=== PATIENT | male | born 1970 | race African-American/Black ===

== ENCOUNTER 2024-05-01 10:27 | Inpatient (IN) | payer OTHER ==
[~2024-05-01 10:27] MED LIST: Iopamidol-370 76% 500 ML MDV (1 ML CHARGE) ONE
[2024-05-01 11:37] LABS: #Basophils 0.15 10x3/uL (0.0-0.2); %Basophils 0.6 % (0.0-1.0); %Eosinophils 0.4 % (0.0-10.0); %Lymphocytes 6.6 % (21.0-51.0); %Monocytes 10.9 % (0.0-10.0); %Neutrophils 78.6 % (42.0-75.0); Hematocrit 39.9 % (42.0-52.0); Hemoglobin 13.5 g/dL (14.0-18.0); Mean Corpuscular HGB CONC 33.8 g/dL (32.0-36.0); Mean Corpuscular Hemoglobin 30.5 pg (27.0-31.0); Mean Corpuscular Volume 90.1 fL (78.0-98.0); Mean Platelet Volume 9.1 fL (7.4-10.4); Platelet Count 429 10x3/uL (130-400); RBC Distribution Width 12.6 % (11.5-14.5); Red Blood Cell (RBC) Count 4.43 mill/uL (4.70-6.10)
[2024-05-01] MEDS ORDERED: Ketorolac Tromethamine 30 MG (1 mL) VIAL ONE (11:38)
[2024-05-01 11:54] LABS: ALT (SGPT) 24 U/L (8-55); AST (SGOT) 27 U/L (5-34); Albumin 2.2 g/dL (3.5-5.0); Alkaline Phosphatase 262 U/L (40-110); Anion Gap 15 mmol/L (10-20); BUN (Urea Nitrogen) 16 mg/dL (8.4-25.7); Bilirubin, Total 1.3 mg/dL (0.2-1.2); Calc. Creatinine Clearance 0 mL/min (70-130); Calcium 8.9 mg/dL (7.8-10.44); Carbon Dioxide 25 mmol/L (22-29); Chloride 92 mmol/L (98-107); Estimated GFR 95; Globulin 4.8 g/dL (2.4-3.5); Glucose 316 mg/dL (70-105); Potassium 4.7 mmol/L (3.5-5.1); Sodium 127 mmol/L (136-145)
[2024-05-01] MEDS ORDERED: Vancomycin (BATCH) 2 GM/500 ML BAG ONE (12:37)
[2024-05-01] MEDS ORDERED: cefTRIAXone (ROCEPHIN) 1 GM VIAL ONE (12:42)
[2024-05-01] MEDS ORDERED: Ondansetron PF 4 MG/2 ML Vial IVP PRN (13:31)
[2024-05-01] MEDS ORDERED: traMADol HCl 50 MG TAB PO PRN (13:33)
[2024-05-01] MEDS ORDERED: PROPOFOL 20 ML ONE (16:09)
[2024-05-01] MEDS ORDERED: fentaNYL 50 mcg/mL 1 mL Vial ONE ×2 (16:09→16:44)
[2024-05-01] MEDS ORDERED: Rocuronium Bromide 10 MG/ML (10ML VIAL) ONE (16:10)
[2024-05-01] MEDS ORDERED: Ondansetron PF 4 MG/2 ML Vial ONE (16:45)
[2024-05-01] MEDS ORDERED: SUGAMMADEX SODIUM 200 MG/2 ML VIAL ONE (17:02)
[2024-05-01] MEDS ORDERED: Meperidine HCl/PF 25 MG (1 mL) VIAL ONE (17:23)
[2024-05-01] MEDS ORDERED: Piperacillin/Tazobactam 3.375 GM VIAL ONE (17:56)
[2024-05-01] MEDS ORDERED: Sodium Chloride 0.9% 100 ML ONE (17:57)
[2024-05-01 19:56] VITALS: BMI 33.6
[2024-05-01] MEDS: Piperacillin/Tazobactam 3.375 GM in Sodium Chloride 0.9% 100 ML IVPB SCH ×3 (21:25→21:47)
[2024-05-01] MEDS: HYDROcodone/Acetaminophen 10/325 mg Tablet PO PRN (21:31)
[2024-05-01] MEDS: Sodium Chloride 0.9% 1,000 ML IV SCH (21:32)
[2024-05-01 21:44] LABS: Lactic Acid 2.22 mmol/L (0.5-2.2)
[2024-05-01] MEDS: traMADol HCl 50 MG TAB PO SCH (21:47)
[2024-05-01] MEDS ORDERED: Dextrose 5% in Water 1,000 ML IV PRN (22:29)
[2024-05-01] MEDS ORDERED: Glucagon 1 MG/ML KIT IM PRN (22:29)
[2024-05-01] MEDS ORDERED: Dextrose 50% Abboject 50 ML SYRINGE SLOW IVP PRN (22:29)
[2024-05-01] MEDS: Insulin Regular, Human 100 UNIT/ML 10 ML VIAL SC PRN (22:53)
[2024-05-02 05:36] LABS: #Basophils 0.11 10x3/uL (0.0-0.2); %Basophils 0.5 % (0.0-1.0); %Eosinophils 0.4 % (0.0-10.0); %Lymphocytes 9.9 % (21.0-51.0); %Monocytes 11.2 % (0.0-10.0); %Neutrophils 75.9 % (42.0-75.0); Hemoglobin 11.4 g/dL (14.0-18.0); Mean Corpuscular HGB CONC 33.5 g/dL (32.0-36.0); Mean Corpuscular Hemoglobin 30.2 pg (27.0-31.0); Mean Corpuscular Volume 90.2 fL (78.0-98.0); Mean Platelet Volume 9.4 fL (7.4-10.4); Platelet Count 413 10x3/uL (130-400); Red Blood Cell (RBC) Count 3.77 mill/uL (4.70-6.10)
[2024-05-02 05:48] LABS: Anion Gap 14 mmol/L (10-20); BUN (Urea Nitrogen) 21 mg/dL (8.4-25.7); Calc. Creatinine Clearance 87 mL/min (70-130); Calcium 7.8 mg/dL (7.8-10.44); Carbon Dioxide 23 mmol/L (22-29); Chloride 95 mmol/L (98-107); Estimated GFR 77; Glucose 231 mg/dL (70-105); Potassium 4.4 mmol/L (3.5-5.1); Sodium 128 mmol/L (136-145)
[2024-05-02] MEDS: Piperacillin/Tazobactam 3.375 GM VIAL ONE (14:22)
[2024-05-02] MEDS: Acetaminophen 325 MG TAB PO PRN (14:23)
[2024-05-02] MEDS: Sulfameth/Trimethoprim DS 800-160mg TAB PO SCH (20:42)
[2024-05-02] MEDS: Ciprofloxacin 500 MG TAB PO SCH (20:42)
[2024-05-03 05:48] LABS: #Basophils 0.11 10x3/uL (0.0-0.2); %Basophils 0.6 % (0.0-1.0); %Eosinophils 0.7 % (0.0-10.0); %Lymphocytes 9.7 % (21.0-51.0); %Monocytes 10.9 % (0.0-10.0); %Neutrophils 74.7 % (42.0-75.0); Hematocrit 34.9 % (42.0-52.0); Hemoglobin 11.7 g/dL (14.0-18.0); Mean Corpuscular HGB CONC 33.5 g/dL (32.0-36.0); Mean Corpuscular Hemoglobin 30.3 pg (27.0-31.0); Mean Corpuscular Volume 90.4 fL (78.0-98.0); Platelet Count 460 10x3/uL (130-400); RBC Distribution Width 13.2 % (11.5-14.5); Red Blood Cell (RBC) Count 3.86 mill/uL (4.70-6.10)
[2024-05-03] MEDS: Acetaminophen 500 MG TAB PO SCH (08:49)
[2024-05-03] MEDS: Ketorolac Tromethamine 30 MG (1 mL) VIAL IVP SCH (08:49)
[2024-05-03] MEDS: Doxycycline 100 MG CAP PO SCH (08:49)
[2024-05-03] MEDS ORDERED: Vancomycin 1 GM/200 ML (FROZEN) BAG ONE (10:50)
[2024-05-03] MEDS ORDERED: Rocuronium Bromide 10 MG/ML (10ML VIAL) ONE (12:34)
[2024-05-03] MEDS ORDERED: fentaNYL PF 100 MCG/2 ML SYRINGE ONE (12:34)
[2024-05-03] MEDS ORDERED: PROPOFOL 20 ML ONE (12:34)
[2024-05-03] MEDS ORDERED: Lidocaine 1% PF 5 ML VIAL ONE (12:34)
[2024-05-03] MEDS ORDERED: Bupivacaine 0.25% HCL 30 ML VIAL ONE (13:09)
[2024-05-03] MEDS ORDERED: EPINEPHrine 1 MG/ML VIAL ONE (13:09)
[2024-05-03] MEDS ORDERED: Ondansetron PF 4 MG/2 ML Vial ONE (13:14)
[2024-05-03] MEDS ORDERED: Dexamethasone 4 mg/ml Vial ONE (13:14)
[2024-05-03] MEDS ORDERED: SUGAMMADEX SODIUM 200 MG/2 ML VIAL ONE (13:44)
[2024-05-03] MEDS ORDERED: Dextrose 50% Abboject 50 ML SYRINGE SLOW IVP PRN (13:50)
[2024-05-03] MEDS ORDERED: Glucagon 1 MG/ML KIT IM PRN (13:50)
[2024-05-03] MEDS ORDERED: Dextrose 5% in Water 1,000 ML IV PRN (13:50)
[2024-05-03 14:30] LABS: Hemoglobin A1c 10.3 % (4.0-6.0)
[2024-05-03] MEDS: Insulin Lispro 100 UNIT/ML 10 ML VIAL SC PRN (15:09)
[2024-05-03] MEDS: Vancomycin 1 GM in Premix 1 BAG IVPB SCH (15:10)
[2024-05-03] MEDS: Oxacillin 2 GM in Sodium Chloride 0.9% 100 ML IVPB SCH (16:47)
[2024-05-03] MEDS: Enoxaparin 40 MG (0.4 mL) SYRINGE SC SCH (20:46)
[2024-05-03] MEDS: Insulin Glargine 30 UNITS/0.3 ML VIAL SC SCH (20:48)
[2024-05-03] MEDS ORDERED: Vancomycin (BATCH) 1.5 GM in Premix 1 BAG IVPB SCH (21:00)
[2024-05-03] MEDS ORDERED: Vancomycin HCl 750 MG in Sodium Chloride 0.9% 250 ML 250 ML IVPB SCH (23:59)
[2024-05-04] MEDS: Glimepiride 4 MG TAB PO SCH (08:35)
[2024-05-04] MEDS: metFORMIN 500 MG TAB PO SCH (08:35)
[2024-05-04] MEDS: diphenhydrAMINE 25 MG CAP PO SCH (14:21)
[2024-05-05 05:46] LABS: #Basophils 0.09 10x3/uL (0.0-0.2); %Basophils 0.6 % (0.0-1.0); %Eosinophils 1.2 % (0.0-10.0); %Lymphocytes 18.3 % (21.0-51.0); %Monocytes 8.3 % (0.0-10.0); %Neutrophils 69.6 % (42.0-75.0); Hematocrit 32.5 % (42.0-52.0); Hemoglobin 11.1 g/dL (14.0-18.0); Mean Corpuscular HGB CONC 34.2 g/dL (32.0-36.0); Mean Corpuscular Hemoglobin 29.9 pg (27.0-31.0); Mean Corpuscular Volume 87.6 fL (78.0-98.0); Mean Platelet Volume 9.2 fL (7.4-10.4); Platelet Count 494 10x3/uL (130-400); RBC Distribution Width 13.1 % (11.5-14.5); Red Blood Cell (RBC) Count 3.71 mill/uL (4.70-6.10)
[2024-05-05 06:31] LABS: Anion Gap 14 mmol/L (10-20); BUN (Urea Nitrogen) 50 mg/dL (8.4-25.7); Calc. Creatinine Clearance 47 mL/min (70-130); Calcium 7.5 mg/dL (7.8-10.44); Carbon Dioxide 22 mmol/L (22-29); Cardiac Risk 9.9 (Less than 4.5); Chloride 102 mmol/L (98-107); Cholesterol 109 mg/dl (< 200 Desired); Estimated GFR 37; Glucose 118 mg/dL (70-105); HDL Cholesterol 11 mg/dL (>60 Neg Risk); LDL Cholesterol, Calculated 69 mg/dL; Potassium 3.7 mmol/L (3.5-5.1); Sodium 134 mmol/L (136-145); Triglycerides 147 mg/dL (Less than 150)
[2024-05-05] MEDS: Acetaminophen 500 MG TAB PO PRN (08:30)
[2024-05-05 09:20] VITALS: BMI 33.6
[2024-05-05] MEDS: Sodium Chloride 0.9% 1,000 ML IV SCH ×3 (11:23→11:29)
[2024-05-05] MEDS: Albumin 25% 25 GM (100 mL) BOT IVPB SCH (11:28)
[2024-05-05] MEDS: Morphine 2 MG/ML VIAL SLOW IVP SCH (11:48)
[2024-05-05 13:53] LABS: Bacteria/HPF None Seen HPF (None Seen); Bilirubin Negative (Negative); Blood, Urine Negative (Negative); CAUTI Indications for Culture Dysuria,urgency,freq; Clarity Clear (Clear); Glucose, Urine (Dipstick) Normal (Negative); Ketone, Urine Negative (Negative); Leukocyte Negative Leu/uL (Negative); Nitrite Negative (Negative); Protein, Urine (Dipstick) Negative (Neg-Trace); RBC/HPF 0-3 HPF (0-3); Specific Gravity, Urine 1.011 (1.002-1.036); Squamous Epithelial None Seen HPF (0-3); WBC/HPF 0-3 HPF (0-3); pH, Urine 6.5 (5.0-9.0)
[2024-05-05 14:04] LABS: Urine Culture Reflex No No
[2024-05-05 14:50] LABS: Creatinine, Urine 61.34 mg/dL (63-166); Protein, Urine Random Quant Less than 10 mg/dL (1-14); Sodium, Urine 86 mmol/L (Not Available)
[2024-05-05 17:08] LABS: ALT (SGPT) 14 U/L (8-55); AST (SGOT) 20 U/L (5-34); Albumin 1.6 g/dL (3.5-5.0); Alkaline Phosphatase 167 U/L (40-110); Bilirubin, Direct 0.4 mg/dL (0.1-0.3); Bilirubin, Total 0.5 mg/dL (0.2-1.2); Protein, Total 5.5 g/dL (6.0-8.3)
[2024-05-05] MEDS: traMADol HCl 50 MG TAB PO PRN (22:25)
[2024-05-06 05:57] LABS: #Basophils 0.08 10x3/uL (0.0-0.2); %Basophils 0.6 % (0.0-1.0); %Lymphocytes 14.4 % (21.0-51.0); %Monocytes 6.8 % (0.0-10.0); %Neutrophils 75.6 % (42.0-75.0); Hemoglobin 10.6 g/dL (14.0-18.0); Mean Corpuscular HGB CONC 33.1 g/dL (32.0-36.0); Mean Corpuscular Volume 90.7 fL (78.0-98.0); Mean Platelet Volume 9.1 fL (7.4-10.4); Platelet Count 505 10x3/uL (130-400); RBC Distribution Width 13.2 % (11.5-14.5); Red Blood Cell (RBC) Count 3.53 mill/uL (4.70-6.10)
[2024-05-06 06:20] LABS: ALT (SGPT) 18 U/L (8-55); AST (SGOT) 40 U/L (5-34); Albumin 2.7 g/dL (3.5-5.0); Alkaline Phosphatase 156 U/L (40-110); Bilirubin, Direct 0.4 mg/dL (0.1-0.3); Bilirubin, Total 0.7 mg/dL (0.2-1.2); Protein, Total 6.2 g/dL (6.0-8.3)
[2024-05-06 06:25] LABS: Anion Gap 13 mmol/L (10-20); BUN (Urea Nitrogen) 21 mg/dL (8.4-25.7); Calc. Creatinine Clearance 101 mL/min (70-130); Calcium 8.4 mg/dL (7.8-10.44); Carbon Dioxide 23 mmol/L (22-29); Chloride 101 mmol/L (98-107); Estimated GFR 92; Glucose 140 mg/dL (70-105); Potassium 4.4 mmol/L (3.5-5.1); Sodium 133 mmol/L (136-145)
[2024-05-06 06:36] LABS: HBsAg Index 0.27 S/CO (0-0.99); Hep A IgM AB NONREACTIVE (NonReactive); Hep A IgM S/CO 0.21 S/CO (0-0.79); Hep B Core IgM Index 0.07 S/CO (0-0.79); Hep B Surf Ag NONREACTIVE S/CO (NonReactive); Hep C IgG Ab NONREACTIVE S/CO (NonReactive); Hep C Index 0.11 S/CO (0-0.79); Hepatitis B Core IgM Abs NONREACTIVE S/CO (NonReactive)
[2024-05-06] MEDS: HYDROcodone/Acetaminophen 5/325 mg Tablet PO PRN (11:37)
[2024-05-06] MEDS: Albumin 25% 25 GM (100 mL) BOT IVPB SCH (12:50)
[2024-05-06] MEDS: metFORMIN 500 MG TAB PO SCH (16:49)
[2024-05-07 06:20] LABS: #Basophils 0.11 10x3/uL (0.0-0.2); %Basophils 0.9 % (0.0-1.0); %Eosinophils 0.7 % (0.0-10.0); %Lymphocytes 13.4 % (21.0-51.0); %Monocytes 4.9 % (0.0-10.0); %Neutrophils 78.8 % (42.0-75.0); Hematocrit 29.5 % (42.0-52.0); Hemoglobin 9.8 g/dL (14.0-18.0); Mean Corpuscular HGB CONC 33.2 g/dL (32.0-36.0); Mean Corpuscular Hemoglobin 30.2 pg (27.0-31.0); Mean Corpuscular Volume 90.8 fL (78.0-98.0); Mean Platelet Volume 8.8 fL (7.4-10.4); Platelet Count 553 10x3/uL (130-400); Red Blood Cell (RBC) Count 3.25 mill/uL (4.70-6.10)
[2024-05-07 06:47] LABS: ALT (SGPT) 21 U/L (8-55); AST (SGOT) 34 U/L (5-34); Albumin 3.7 g/dL (3.5-5.0); Alkaline Phosphatase 162 U/L (40-110); Anion Gap 13 mmol/L (10-20); BUN (Urea Nitrogen) 15 mg/dL (8.4-25.7); Calc. Creatinine Clearance 116 mL/min (70-130); Calcium 9.1 mg/dL (7.8-10.44); Carbon Dioxide 22 mmol/L (22-29); Chloride 100 mmol/L (98-107); Estimated GFR 105; Globulin 3.6 g/dL (2.4-3.5); Glucose 163 mg/dL (70-105); Magnesium 1.7 mg/dL (1.6-2.6); Potassium 4.2 mmol/L (3.5-5.1); Protein, Total 7.3 g/dL (6.0-8.3); Sodium 131 mmol/L (136-145)
[2024-05-07] MEDS: Torsemide 10 MG TAB PO SCH (13:55)
[2024-05-07] MEDS: Spironolactone 25 MG TAB PO SCH (13:55)
[2024-05-08 05:24] LABS: Anion Gap 13 mmol/L (10-20); BUN (Urea Nitrogen) 13 mg/dL (8.4-25.7); Calc. Creatinine Clearance 126 mL/min (70-130); Calcium 8.9 mg/dL (7.8-10.44); Carbon Dioxide 21 mmol/L (22-29); Chloride 104 mmol/L (98-107); Estimated GFR 108; Glucose 118 mg/dL (70-105); Magnesium 1.6 mg/dL (1.6-2.6); Potassium 3.8 mmol/L (3.5-5.1); Sodium 134 mmol/L (136-145)
[2024-05-08 07:16] LABS: Phosphorus 4.2 mg/dL (2.3-4.7)
[2024-05-08] MEDS: Magnesium Sulfate In Water 4 GM in Premix 1 BAG IVPB SCH (07:39)
[2024-05-08] MEDS: Spironolactone 25 MG TAB PO SCH (07:40)
[2024-05-08] MEDS: Torsemide 10 MG TAB PO SCH (07:40)
[2024-05-08 16:13] LABS: A/G Ratio 0.9 (0.7-1.7); Albumin 3.1 g/dL (2.9-4.4); Alpha 1 0.3 g/dL (0.0-0.4); Alpha 2 0.7 g/dL (0.4-1.0); Beta 0.8 g/dL (0.7-1.3); Gamma 1.5 g/dL (0.4-1.8); Globulin, Total 3.3 g/dL (2.2-3.9); M-Spike Not Observed g/dL (Not Observed)
[2024-05-09 06:04] LABS: ALT (SGPT) 12 U/L (8-55); AST (SGOT) 24 U/L (5-34); Alkaline Phosphatase 125 U/L (40-110); Anion Gap 13 mmol/L (10-20); BUN (Urea Nitrogen) 10 mg/dL (8.4-25.7); Bilirubin, Total 0.6 mg/dL (0.2-1.2); Calc. Creatinine Clearance 122 mL/min (70-130); Calcium 8.5 mg/dL (7.8-10.44); Carbon Dioxide 21 mmol/L (22-29); Chloride 102 mmol/L (98-107); Estimated GFR 106; Globulin 3.5 g/dL (2.4-3.5); Glucose 171 mg/dL (70-105); Magnesium 1.7 mg/dL (1.6-2.6); Potassium 3.7 mmol/L (3.5-5.1); Protein, Total 6.5 g/dL (6.0-8.3); Sodium 132 mmol/L (136-145)
[2024-05-09] MEDS ORDERED: PHENYLEPHRINE-NS 100 MCG/ML 10 ML SYRINGE ONE (09:18)
[2024-05-09] MEDS: Magnesium Sulfate In Water 4 GM in Premix 1 BAG IVPB SCH (10:40)
[2024-05-10 05:19] LABS: Magnesium 1.8 mg/dL (1.6-2.6)
[2024-05-10 05:21] LABS: #Eosinophils Less than 0.03 10x3/uL (0.0-0.7); %Basophils 0.8 % (0.0-1.0); %Eosinophils 0.1 % (0.0-10.0); %Monocytes 6.9 % (0.0-10.0); %Neutrophils 76.5 % (42.0-75.0); Hemoglobin 8.7 g/dL (14.0-18.0); Mean Corpuscular HGB CONC 33.5 g/dL (32.0-36.0); Mean Corpuscular Hemoglobin 30.3 pg (27.0-31.0); Mean Corpuscular Volume 90.6 fL (78.0-98.0); Platelet Count 617 10x3/uL (130-400); RBC Distribution Width 13.6 % (11.5-14.5); Red Blood Cell (RBC) Count 2.87 mill/uL (4.70-6.10)
[2024-05-10 08:02] LABS: Albumin 2.8 g/dL (3.5-5.0); Anion Gap 11 mmol/L (10-20); BUN (Urea Nitrogen) 10 mg/dL (8.4-25.7); BUN/Creatinine Ratio 12.66; Calc. Creatinine Clearance 126 mL/min (70-130); Calcium 8.3 mg/dL (7.8-10.44); Carbon Dioxide 20 mmol/L (22-29); Chloride 106 mmol/L (98-107); Estimated GFR 108; Glucose 156 mg/dL (70-105); Potassium 4.2 mmol/L (3.5-5.1); Sodium 133 mmol/L (136-145)
[2024-05-10] MEDS: glipiZIDE XL 2.5 mg ER.TAB PO SCH (08:24)
[2024-05-10] MEDS: Magnesium 2 GM/50 ML(in water) 2 GM in Premix 1 BAG IVPB SCH (08:35)
[2024-05-10] MEDS ORDERED: Sodium Bicarbonate 2.5 MEQ/5 ML SDV ONE (09:22)
[2024-05-10] MEDS ORDERED: Lidocaine 1% PF 5 ML VIAL ONE (09:22)
[2024-05-10 09:37] LABS: INR-International Normal Ratio 1.1; Iron 26 ug/dL (65-175); Iron Binding Capacity, Total 169 mcg/dL (261-462); PTT 35.8 sec (22.9-36.1); Prothrombin Time 14.7 sec (12.0-14.7)
[2024-05-10] MEDS: Sodium Ferric Gluconate 125 MG in Sodium Chloride 0.9% 100 ML IVPB SCH (18:30)
[2024-05-10] MEDS: Famotidine 20 MG TAB PO SCH (20:21)
[2024-05-11 06:01] LABS: #Basophils 0.08 10x3/uL (0.0-0.2); #Eosinophils Less than 0.03 10x3/uL (0.0-0.7); %Basophils 0.7 % (0.0-1.0); %Eosinophils 0.1 % (0.0-10.0); %Lymphocytes 19.3 % (21.0-51.0); %Neutrophils 71.2 % (42.0-75.0); Hematocrit 26.6 % (42.0-52.0); Hemoglobin 8.8 g/dL (14.0-18.0); Mean Corpuscular HGB CONC 33.1 g/dL (32.0-36.0); Mean Corpuscular Hemoglobin 30.3 pg (27.0-31.0); Mean Corpuscular Volume 91.7 fL (78.0-98.0); Mean Platelet Volume 8.4 fL (7.4-10.4); Platelet Count 643 10x3/uL (130-400); RBC Distribution Width 13.9 % (11.5-14.5)
[2024-05-11 06:19] LABS: Anion Gap 10 mmol/L (10-20); BUN (Urea Nitrogen) 10 mg/dL (8.4-25.7); Calc. Creatinine Clearance 122 mL/min (70-130); Calcium 8.3 mg/dL (7.8-10.44); Carbon Dioxide 22 mmol/L (22-29); Chloride 107 mmol/L (98-107); Estimated GFR 106; Glucose 152 mg/dL (70-105); Magnesium 1.8 mg/dL (1.6-2.6); Potassium 4.2 mmol/L (3.5-5.1); Sodium 135 mmol/L (136-145)
[2024-05-11] MEDS: Ferrous Sulfate 325 MG TAB PO SCH (09:18)
[2024-05-11 10:17] LABS: Kappa Lambda Light Chain Ratio 1.88 (0.26-1.65); Kappa Light Chains 75.3 mg/L (3.3-19.4); Lambda Light Chain 40.1 mg/L (5.7-26.3)
[2024-05-11 12:08] VITALS: BP 121/65; TEMP 98.4
[2024-05-11] MEDS: CEFAZOLIN 2 GM in Sodium Chloride 0.9% 100 ML IVPB SCH (14:11)
[2024-05-11 14:17] LABS: Albumin, PEP 24hr Ur 39.6 % (NOT ESTAB.); Alpha-1-Globulin, PEP 24h Ur 14.1 % (NOT ESTAB.); Alpha-2-Globulin, PEP 24h Ur 14.2 % (NOT ESTAB.); Beta Globulin, PEP 24h Ur 19.4 % (NOT ESTAB.); Gamma Globulin, PEP 24h Ur 12.8 % (NOT ESTAB.); M-Spike,% PEP 24hr Ur Not Observed % (Not Observed); Protein, PEP 24hr calculated 133 mg/24 hr (30-150); Protein, Urine 5.7 mg/dL (Not Estab.)
[2024-05-11 14:17] LABS: A/G Ratio 0.8 (0.7-1.7); Albumin 2.8 g/dL (2.9-4.4); Alpha 1 0.3 g/dL (0.0-0.4); Alpha 2 0.8 g/dL (0.4-1.0); Beta 0.8 g/dL (0.7-1.3); Gamma 1.5 g/dL (0.4-1.8); Globulin, Total 3.4 g/dL (2.2-3.9); M-Spike Not Observed g/dL (Not Observed)
== END 2024-05-11 17:20 | DRG 854 ==
LOC: ERS 10:27 → EEVIPCON 10:27 → SURG A 18:03
PROVIDERS: ADMIT Surgery; ATTEND Surgery
PROC: 0W9K0ZZ Drainage of Upper Back, Open Approach (ICD-10-PCS; 2024-05-01)
PROC: 3E03329 Introduction of Other Anti-infective into Peripheral Vein, Percutaneous Approach (ICD-10-PCS; 2024-05-01)
PROC: 0K9H0ZZ Drainage of Right Thorax Muscle, Open Approach (ICD-10-PCS; principal; 2024-05-03)
PROC: 3E033XZ Introduction of Vasopressor into Peripheral Vein, Percutaneous Approach (ICD-10-PCS; 2024-05-03)
PROC: 30233J1 Transfusion of Nonautologous Serum Albumin into Peripheral Vein, Percutaneous Approach (ICD-10-PCS; 2024-05-05)
PROC: B24BZZ4 Ultrasonography of Heart with Aorta, Transesophageal (ICD-10-PCS; 2024-05-09)
PROC: 02HV33Z Insertion of Infusion Device into Superior Vena Cava, Percutaneous Approach (ICD-10-PCS; 2024-05-10)
PROC: B5181ZA Fluoroscopy of Superior Vena Cava using Low Osmolar Contrast, Guidance (ICD-10-PCS; 2024-05-10)
DX: A41.01 Sepsis due to Methicillin susceptible Staphylococcus aureus (principal); E87.1 Hypo-osmolality and hyponatremia; L02.212 Cutaneous abscess of back [any part, except buttock and flank]; N17.9 Acute kidney failure, unspecified; E87.20 Acidosis, unspecified; E11.9 Type 2 diabetes mellitus without complications; Z79.4 Long term (current) use of insulin; Z79.899 Other long term (current) drug therapy; E66.9 Obesity, unspecified; Z68.33 Body mass index [BMI] 33.0-33.9, adult; E88.09 Other disorders of plasma-protein metabolism, not elsewhere classified; E83.42 Hypomagnesemia; D50.9 Iron deficiency anemia, unspecified
CPT/HCPCS: 36415; 36416; 36573; 71260; 76705; 80048; 80053; 80061; 80069; 80074; 80076; 81001; 82040; 82570; 82728; 83036; 83540; 83550; 83605; 83735; 83883; 84100; 84155; 84156; 84165; 84166; 84300; 84443; 85025; 85610; 85730; 86141; 87040; 87070; 87077; 87149; 87186; 87205; 93306; 93312; 96365; 96366; 96375; 97139; C1751; J0171; J0665; J0696; J1100; J1650; J1815; J1885; J2175; J2272; J2405; J2543; J2700; J2704; J2916; J3010; J3370; J3370-JW; J3475; J7030; P9047; Q9967